=== PATIENT | female | born 1950 | race Caucasian/White ===

== ENCOUNTER 2022-09-19 04:56 | Inpatient (IN) ==
[2022-09-15 18:32] LABS: Appearance,Urine HAZY (Clear); Bilirubin,Urine Negative (Negative); Color,Urine YELLOW; Culture Indicated,Urine No; Glucose,Urine (UA) Negative (Negative); Ketones,Urine Negative (Negative); Leukocyte Esterase,Urine 25 /uL (Negative); Mucus,Urine FEW /hpf; Nitrate,Urine Negative (Negative); Protein,Urine Negative (Negative); Specific Gravity,Urine 1.021 (1.000-1.035); Urine Blood Negative (Negative); Urine RBC 1 /hpf (0-3); Urine Squamous Epithelial Cell < 1 /hpf (0-4); Urine WBC 3 /hpf (0-4); Urobilinogen,Urine Negative
[2022-09-15 18:32] LABS: Basophils # (Auto) 0.06 K/mcL (0.00-0.30); Basophils % (Auto) 0.6 % (0.0-2.0); Eosinophils # (Auto) 0.35 K/mcL (0.00-0.70); Eosinophils % (Auto) 3.4 % (0.0-7.0); Hematocrit 39.2 % (34.1-44.9); Hemoglobin 11.3 g/dL (11.2-15.7); Lymphocytes # (Auto) 2.35 K/mcL (1.50-4.80); Mean Cell Volume 82.7 fL (80.0-100.0); Mean Corpuscular HGB Conc 28.8 g/dL (31.0-36.0); Monocytes # (Auto) 0.88 K/mcL (0.10-0.90); Monocytes % (Auto) 8.6 % (1.0-12.0); Neutrophils % (Auto) 64.2 % (38.0-78.0); Platelet Count 316 K/mcL (140-440); RBC 4.74 M/mcL (3.59-5.38); Red Cell Distribution Width 14.8 % (11.5-14.5); WBC 10.2 K/mcL (4.5-11.0)
[2022-09-15 19:00] LABS: Blood Urea Nitrogen 25 mg/dL (8-23); Calcium 9.3 mg/dL (8.6-10.4); Carbon Dioxide 23 mmol/L (22-30); Chloride 102 mmol/L (96-108); Glomerular Filtration Rate 41; Glucose 67 mg/dL (70-105)
--- NOTE | 2022-09-18 09:40 | EKG ---
[facility] Test Date: 2022-09-15 Pat Name: Glenda Abdi Department: [facility] Room: Gender: Female Inspector Wire Rope: : 1950 Requested By: Bret Thomson Order Number: [id number] Reading MD: Cayden Soriano Measurements Intervals [place] Rate: 56 P: 44 IN: 158 QRS: 46 QRSD: 92 T: 41 QT: 426 QTc: 411 Interpretive Statements Sinus rhythm Electronically Signed On 09-18-2022 9:39:45 PST by Cayden Soriano /[id number]/[id number]
--- OUTSIDE RECORDS SUMMARY | 2022-09-19 04:59 | External Medical Summary | Summary of Care ---
:1950 Author Organization [facility] Address [address] [place] [address]- Care Team Providers Name Role Phone None, Assigned Primary Care Physician Unavailable Encounter FNBR [id number] Date(s): 03/13/19 - 03/13/19 [facility] [address] [place] [address]- [facility] Allergies, Adverse Reactions, Alerts No Known Medication Allergies Medications gabapentin 600 mg, PO, TID, # 90 dose(s), # Refill (s): 11 Start Date: 03/13/19 Status: Suspendedzolpidem 5 mg oral tablet 5 mg = 1 tab(s), PO, Every Bedtime, PRN: as needed for insomnia, Takes nightly Start Date: 03/13/19 Status: Suspendedzzzacetaminophen-codein 300 mg-30 mg oral tablet Start Date: 03/13/19 Status: Ordered
--- OUTSIDE RECORDS SUMMARY | 2022-09-19 04:59 | External Medical Summary ---
:1950 Author Care Team Providers Name Role Phone MIAH ZAPATA MD Primary Care Provider [phone] JUAN MAHONEY MD Pest Controller Assistant [phone] Allergies Code Code System Name Reaction Severity Status Onset NKDA Medications Name Status Start Date Stop Date acetaminophen 300 mg-codeine 30 mg tablet Active Not available Take 2 tablets as needed by oral route for 28 days. gabapentin 300 mg capsule Active Not av ailable Take 2 capsules 3 times a day by oral route for 30 days. hydrochlorothiazide 12.5 mg tablet Completed 03/28/2019 hydrocodone 7.5 mg-acetaminophen 325 mg tablet Active Not available Take 1 tablet as needed by oral route for 11 days. levofloxacin 750 mg tablet Completed 03/28 metronidazole 500 mg tablet Completed 03/03 Probiotic 10 billion cell capsule Active Not available Take 1 capsule every day by oral route in the morning. sulfamethoxazole 800 mg-trimethoprim 160 mg tablet Completed 03/28/2019 zolpidem 5 mg tablet Completed 03/28/2019 Problems None recorded. Procedures Date Name Performed by 09/03/2003 Complete Repair of Rotator Cuff Informat ion not available Notes: RIGHT Stent Placement Information not avai lable Notes: COMMON BILE DUCT Endoscopic Retrograde Information not av ailable Cholangiopancreatography Parathyroidectomy Information not avai lable Total Shoulder Replacement Information n ot available Notes: RIGHT Tonsillectomy Information not avai lable Tubal Ligation Information not avai lable Notes: IN HER 20'S Biopsy of Breast Information not avai lable Notes: FIBROCYSTIC 03/28/2019 CT, Abdomen + Pelvis, W/wo Contrast rm c Radiology [address] [place] [id number] (Work Place) Results Lab Results None recorded. Past Encounters None recorded. Social History Tobacco Smoking Status Former Smoker (2 packs per day) Note s: QUIT SMOKING 2001 Vaccine List Vaccine Type influenza, injectable, quadrivalent 07/02/2018 pneumococcal conjugate PCV 13 07/02/2018 Plan of Care Reminders Provider Appointments None recorded. Lab None recorded. Referral None recorded. Procedures None recorded. Surgeries None recorded. Imaging None recorded. Vitals 03/28/2019 09:00AM New Patient 30 Height Weight BMI Blood Pressure 5 ft 6 in 207 lbs 33.4 kg/m2 (1) 155/85 mm[H g] (2) 215/110 mm[H g] 03/19/2019 Height Weight BMI Blood Pressure 5 ft 6 in 251 lbs 40.5 kg/m2 109/56 mm[Hg]
--- OUTSIDE RECORDS SUMMARY | 2022-09-19 04:59 | External Medical Summary | Summary of Care ---
:1950 Author Organization [facility] Address [address] [place] [address]- Care Team Providers Name Role Phone None, Assigned Primary Care Physician Unavailable Encounter FNBR [id number] Date(s): 03/13/19 - 03/15/19 [facility] [address] [place] [address]- [facility] Discharge Diagnosis: Acute cholecystitis due to biliary calculus Discharge Diagnosis: UTI (urinary tract infection) Discharge Diagnosis: E coli bacteremia Discharge Disposition: *Home () Attending Physician: Alma Vigil MD Admitting Physician: Phan Chapman MD Vital Signs Most recent to oldest [Reference Range]: 1 Height (in) 66.93 inch(es) (03/13/19 10:02 PM) Body Mass Index 32.68 kg/m2 (03/13/19 10:02 PM) Blood Pressure [90-138/60-88 mmHg] 204/93 mmHg *>HHI* (03/15/19 11:16 AM) Peripheral Pulse Rate [50-110 bpm] 62 bpm (03/15/19 11:16 AM) Problem List Condition Effective Dates Status Health Status Informant Cholecystitis, acute(Confirmed) 03/14/19 Active E coli bacteremia(Confirmed) 03/15/19 Active Choledocholithiasis with acute 03/15/19 Active cholecystitis with obstruction(Confirmed) Chronic kidney disease (CKD), stage 03/15/19 Active III (moderate)(Confirmed) Allergies, Adverse Reactions, Alerts Substance Reaction Severity Status Ambien1 delirium Severe Active 1presented to ER with altered mental status and acute cholecystitis. She was asymptomatic of gallbaldder disease Medications acetaminophen-codeine 300 mg-30 mg oral tablet 1 tab(s), PO, Q6 Hours, # 30 tab(s), Continue to take pain medications as directed by your prescribing doctor Start Date: 03/15/19 Status: Orderedgabapentin 600 mg, PO, TID, # 90 dose(s), # Refill (s): 11 Start Date: 03/13/19 Status: OrderedlevoFLOXacin 750 mg oral tablet 750 mg = 1 tab(s), PO, Q24 Hours, # 12 tab(s), x 12 day(s) 03/27/19 Start Date: 03/15/19 Stop Date: 03/27/19 Status: OrderedmetroNIDAZOLE 500 mg oral tablet 500 mg = 1 tab(s), PO, Q8 Hours, # 12 tab(s), x 4 day(s) 03/19/19 Start Date: 03/15/19 Stop Date: 03/19/19 Status: Ordered Results General Lab Most recent to oldest [Reference Range]: 1 White Blood Cell Count [3.5-11.0 x10(9)/L] 15.1 x10(9) /L *HI* (03/15/19 7:36 AM) Red Blood Cell Count [3.80-5.10 x10(12)/L] 4.31 x10(12 )/L (03/15/19 7:36 AM) Hemoglobin [11.4-15.2 g/dL] 11.9 g/dL (03/15/19 7:36 AM) Hematocrit [33-45 %] 37 % (03/15/19 7:36 AM) Mean Corpuscular Volume [80-100 fL] 86 fL (03/15/19 7:36 AM) Mean Corpuscular HGB [28-34 pg] 28 pg (03/15/19 7:36 AM) Mean Corpuscular HGB Concentrn [33-36 g/dL] 32 g/dL *LOW* (03/15/19 7:36 AM) RBC Distribution Width [12.0-16.0 %] 14.8 % (03/15/19 7:36 AM) Platelet Count [150-400 x10(9)/L] 231 x10(9)/L (03/15/19 7:36 AM) Lymphocytes, Percent 8.5 % *NA* (03/15/19 7:36 AM) Monocytes, Percent 4.4 % *NA* (6/14/19 7:36 AM) Neutrophils, Percent 87.0 % *NA* (03/15/19 7:36 AM) Eosinophils, Percent 0.0 % *NA* (03/15/19 7:36 AM) Basophils, Percent 0.1 % *NA* (03/15/19 7:36 AM) Lymphocytes, Absolute Count [1.0-4.5 x10(9)/L] 1.3 x10 (9)/L (03/15/19 7:36 AM) Monocytes, Absolute Count [0.1-0.9 x10(9)/L] 0.7 x10(9 )/L (03/15/19 7:36 AM) Neutrophils, Absolute Count [2.0-8.5 x10(9)/L] 13.2 x1 0(9)/L *HI* (03/15/19 7:36 AM) Eosinophils, Absolute Count [0.0-0.5 x10(9)/L] 0.0 x10 (9)/L (03/15/19 7:36 AM) Basophils, Absolute Count [0.0-0.1 x10(9)/L] 0.0 x10(9 )/L (03/15/19 7:36 AM) Lymphocytes Percent 9 % *NA* (03/13/19 10:20 PM) Monocytes Percent 3 % *NA* (03/13/19 10:20 PM) Segmented Neutrophils Percent 82 % *NA* (03/13/19 10:20 PM) Bands Percent [0-10 %] 6 % (03/13/19 10:20 PM) Eosinophils Percent 0 % *NA* (03/13/19 10:20 PM) Basophils Percent 0 % *NA* (03/13/19 10:20 PM) Lymphocytes Absolute Count [1.00-4.50 x10(9)/L] 2.00 x 10(9)/L (03/13/19 10:20 PM) Monocytes Absolute Count [0.10-0.90 x10(9)/L] 0.67 x10 (9)/L (03/13/19 10:20 PM) Neutrophils Absolute Count [2.00-8.50 x10(9)/L] 19.54 x10(9)/L *HI* (03/13/19 10:20 PM) Eosinophils Absolute Count [0.00-0.50 x10(9)/L] 0.00 x 10(9)/L (03/13/19 10:20 PM) Basophils Absolute Count [0.00-0.20 x10(9)/L] 0.00 x10 (9)/L (03/13/19 10:20 PM) Morphology normal (03/13/19 10:20 PM) Prothrombin Time [11.8-14.3 sec] 14.4 sec *HI* (03/13/19 10:20 PM) INR [0.9-1.1] 1.1 (03/13/19 10:20 PM) Sodium Level [136-146 mmol/L] 141 mmol/L (03/15/19 7:36 AM) Potassium Level [3.5-5.3 mmol/L] 3.9 mmol/L (03/15/19 7:36 AM) Chloride Level [100-112 mmol/L] 108 mmol/L (03/15/19 7:36 AM) Carbon Dioxide Content (CO2) [22-31 mmol/L] 24 mmol/L (03/15/19 7:36 AM) Anion Gap, Blood [6-14 mmol/L] 9 mmol/L (03/15/19 7:36 AM) Creatinine, Serum [0.57-1.11 mg/dL] 1.03 mg/dL (03/15/19 7:36 AM) eGFR (NonAfrican-Brazilian) [60-300 mL/min/1.73m] 56 mL/min/1.73m *LOW* (03/15/19 7:36 AM) eGFR (-Brazilian) [60-300 mL/min/1.73m] >60 mL /min/1.73m (03/15/19 7:36 AM) Urea Nitrogen [9-25 mg/dL] 15 mg/dL (03/15/19 7:36 AM) Total Protein Plasma [6.1-8.0 g/dL] 5.9 g/dL *LOW* (03/15/19 7:36 AM) Albumin Level [3.4-4.8 g/dL] 3.1 g/dL *LOW* (03/15/19 7:36 AM) Calcium Level [8.7-10.4 mg/dL] 9.4 mg/dL (03/15/19 7:36 AM) Magnesium Level [1.8-2.8 mg/dL] 1.8 mg/dL (03/15/19 7:36 AM) Alkaline Phosphatase [40-150 U/L] 429 U/L *HI* (03/15/19 7:36 AM) ALT (SGPT) [<=55 U/L] 251 U/L *HI* (03/15/19 7:36 AM) AST (SGOT) [10-40 U/L] 133 U/L *HI* (03/15/19 7:36 AM) Bilirubin Total Level [0.2-1.2 mg/dL] 1.2 mg/dL (03/15/19 7:36 AM) Glucose Random [75-139 mg/dL] 103 mg/dL (03/15/19 7:36 AM) Lactic Acid, Whole Blood [<=1.6 mmol/L] 0.8 mmol/L (03/13/19 10:20 PM) pH, Urine [5.0-8.0] 6.0 *NA* (03/14/19 6:05 AM) Specific [place], Urine [1.005-1.030] 1.028 (03/14/19 6:05 AM) Protein, Urine [negative] negative *NA* (03/14/19 6:05 AM) Glucose, Qualitative Urine [negative] negative *NA* (03/14/19 6:05 AM) Ketones, Urine [negative] negative *NA* (03/14/19 6:05 AM) Blood, Urine [negative] TRACE *ABN* (03/14/19 6:05 AM) Urine Leukocyte Esterase [negative] 3+ *ABN* (03/14/19 6:05 AM) Urine Nitrite [negative] negative *NA* (03/14/19 6:05 AM) U Sediment ABNORMAL AUTO *ABN* (03/14/19 6:05 AM) Urine C/S If Indicated Sent *ABN* (03/14/19 6:05 AM) UA RBC Auto 2+ *ABN* (03/14/19 6:05 AM) UA WBC Auto 2+ *ABN* (03/14/19 6:05 AM) Epithelial Cells 1+ (03/14/19 6:05 AM) C-Reactive Protein [<=7.9 mg/L] 136.0 mg/L *HI* (03/13/19 10:20 PM) Microbiology Reports TEST:Urine Culture/Sensitivity STATUS:Auth (Verified) BODY SITE: SOURCE:Urine (Clean Void) COLLECTED DATE/TIME:03/14/19 6:05 AMFINAL REPORTNo growth of >=1,000 cfu/ml at 1 day.TEST:Blood Culture (Bacteria & Yeast) STATUS:In Progress BODY SITE:Hand Right SOURCE:Blood COLLECTED DATE/TIME:03/13/19 10:21 PMPRELIMINARY REPORTNo growth to date TEST:Blood Culture (Bacteria & Yeast) STATUS:In Progress BODY SITE:Hand Left SOURCE:Blood COLLECTED DATE/TIME:03/13/19 10:20 PMPRELIMINARY REPORTNo growth to date Radiology Reports Exam Date Time Procedure Performing Provider Status 03/14/19 3:15 PM ERCP Short Auth (Verified) Notes:(ERCP Short) Result Comment: History: ERCPTechnical fluoroscopic assistance was provided to the gastroenterology physician. This is a technical charge only. Please see complete notes from gastroenterology.
[2022-09-19] MEDS ORDERED: IPRATROPIUM/ALBUTEROL 3 ML AMPUL.NEB NEB PRN ×2 (05:00→08:12)
[2022-09-19] MEDS ORDERED: SCOPOLAMINE 1 PATCH PATCH TOPICAL PRN (05:00)
[2022-09-19] MEDS ORDERED: GABAPENTIN 300 MG CAPSULE PO SCH ×3 (06:00→21:00)
[2022-09-19] MEDS ORDERED: ceFAZolin 2 GM in DEXTROSE 5% IN WATER 50 ML IV SCH (06:00)
[2022-09-19] MEDS ORDERED: CELECOXIB 200 MG CAPSULE PO SCH (06:00)
[2022-09-19] MEDS ORDERED: ACETAMINOPHEN 500 MG TABLET PO SCH (06:00)
[2022-09-19] MEDS ORDERED: 0.9 % SODIUM CHLORIDE 9 ML, KETOROLAC 30 MG, ROPIVACAINE HCL/PF 49.5 ML, EPINEPHrine 0.... IJ SCH (06:00)
[2022-09-19] MEDS ORDERED: oxyCODONE 10 MG TAB.ER.12H PO SCH (06:00)
[2022-09-19] MEDS ORDERED: PROPOFOL 200 MG/20 ML VIAL IV ONE (07:30)
[2022-09-19] MEDS ORDERED: LIDOCAINE HCL/PF 100 MG/5 ML SYRINGE IV ONE (07:30)
[2022-09-19] MEDS ORDERED: ROPIVACAINE HCL/PF 20 ML VIAL IJ ONE (07:30)
[2022-09-19] MEDS ORDERED: DEXAMETHASONE 10 MG/ML VIAL ONE (07:30)
[2022-09-19] MEDS ORDERED: fentaNYL 100 MCG/2 ML VIAL IV ONE (07:30)
[2022-09-19] MEDS ORDERED: KETAMINE 50 MG/ML Syringe (ANEST) IV ONE (07:30)
[2022-09-19] MEDS ORDERED: MAGNESIUM SULFATE 2 GM/50 ML BAG IV ONE (07:30)
[2022-09-19] MEDS ORDERED: ONDANSETRON 4 MG/2 ML VIAL ONE (07:30)
[2022-09-19] MEDS ORDERED: diphenhydrAMINE 50 MG/ML VIAL IV PRN (08:12)
[2022-09-19] MEDS ORDERED: LACTATED RINGERS 250 ML IV PRN (08:12)
[2022-09-19] MEDS ORDERED: fentaNYL 100 MCG/2 ML VIAL IV PRN (08:12)
[2022-09-19] MEDS ORDERED: NALOXONE HCL 0.4 MG/ML VIAL IV PRN (08:12)
[2022-09-19] MEDS ORDERED: PROMETHAZINE 25 MG/ML VIAL IV PRN (08:12)
[2022-09-19] MEDS ORDERED: ONDANSETRON 4 MG/2 ML VIAL IV PRN ×2 (08:12→08:30)
[2022-09-19] MEDS ORDERED: MEPERIDINE 25 MG/ML VIAL IV PRN (08:12)
[2022-09-19] MEDS ORDERED: LACTATED RINGERS 1,000 ML IV SCH (08:15)
[2022-09-19] MEDS ORDERED: TRANEXAMIC ACID 1,000 MG/10 ML VIAL IV ONE ×2 (08:16→08:30)
[2022-09-19] MEDS ORDERED: FLEETS ADULT ENEMA PR PRN (08:30)
[2022-09-19] MEDS ORDERED: POLYETHYLENE GLYCOL 3350 17 GM PACKET PO PRN (08:30)
[2022-09-19] MEDS ORDERED: HYDROcodone/APAP 10/325MG TABLET PO PRN (08:30)
[2022-09-19] MEDS ORDERED: BISACODYL 10 MG SUPP.RECT PR PRN (08:30)
[2022-09-19] MEDS ORDERED: TEMAZEPAM 15 MG CAPSULE PO PRN (08:30)
[2022-09-19] MEDS ORDERED: MAGNESIUM HYDROXIDE 30 ML ORAL.SUSP PO PRN (08:30)
[2022-09-19] MEDS ORDERED: ACETAMINOPHEN 325 MG TABLET PO PRN (08:30)
[2022-09-19] MEDS ORDERED: 0.45 % SODIUM CHLORIDE 1,000 ML IV SCH (08:30)
--- NOTE | 2022-09-19 08:30 | Brief Operative Note ---
Brief Operative Note Date of procedure: 09/19/22 Pre-op diagnosis: left knee instability Post-op diagnosis: same Procedure: Left tka revision ofpoly Grafts/Implants: Yes Anesthesia: GETA Findings: severe instability Complications: none Surgeon: Jose Oneil Teacher Public Health: Mickey Ortiz Estimated blood loss (cc): 20 Tourniquet Time (Minutes): 25 Specimens Removed/Pathology: none sent Condition: stable Disposition: PACU
[2022-09-19] MEDS ORDERED: ZOLPIDEM 5 MG TABLET PO PRN (08:32)
[2022-09-19] MEDS ORDERED: DILTIAZEM 180 MG CAP.XL.24H PO SCH (09:00)
[2022-09-19] MEDS ORDERED: ASPIRIN 81 MG TAB.CHEW PO SCH (09:00)
[2022-09-19] MEDS ORDERED: CALCIUM W/VIT D3 500 MG TABLET PO SCH (09:00)
[2022-09-19] MEDS ORDERED: DOCUSATE SODIUM 100 MG CAPSULE PO SCH (09:00)
[2022-09-19] MEDS ORDERED: VITAMIN D3 25 MCG TABLET PO SCH (09:00)
--- NOTE | 2022-09-19 09:53 | XRay Report ---
CLINICAL INFORMATION: Post-Op Total Knee COMPARISON: None. FINDINGS: Total knee prostheses is anatomically aligned. No osseous abnormalities. Periarticular soft tissue swelling seen as expected. IMPRESSION: Knee prostheses in anatomic alignment Interpreted and Authenticated by: Vahid Beard 09/19/22
--- NOTE | 2022-09-19 11:02 | Operative Note ---
DATE OF OPERATION: 09/19/2022 PREOPERATIVE DIAGNOSIS: Left knee instability. POSTOPERATIVE DIAGNOSIS: Left knee instability. PROCEDURE: Left total knee revision of one component from a size 11 mm poly to a size 13 mm poly with a deep dish. SURGEON: Jose Oneil M.D. DINKEY ENGINE FIRER: Mickey Ortiz PA-C. The PA's assistance was required for the safe and efficient completion of the entire case. This provider's expertise and technical skill were required throughout the case. The PA assisted with preoperative coordination, intraoperative retraction, wound closure, dressing and splint application, as well as postoperative documentation and care coordination. ANESTHESIA: Spinal and general LMA anesthesia. GATE SERVICES SUPERVISOR: Bret Thomson CRNA. COMPLICATIONS: None. DISPOSITION: PACU. ESTIMATED BLOOD LOSS: Less than 20 mL. TOURNIQUET TIME: Approximately 25 minutes at 250 pounds of pressure. DESCRIPTION OF PROCEDURE: The patient was brought to the operating room, put to sleep with general LMA anesthesia. Once asleep, the patient had the left leg sterilely prepped and draped in the usual sterile fashion. Timeout was performed, confirming it as the operative site by initials, consent form, and x-ray. A midline incision was made with midvastus approach as well as dissecting through the fascia. We identified the joint and saw no signs of infection. We removed the poly liner, which measured 11 mm by 4 mm baseplate. There was a small posterior meniscus that was removed as well. We injected the posterior capsule with the post-injection formula. We trialed with OrthoSensor or Verasense that recorded the pressures through the arc of motion. This recorded an acceptable range with a size 13. The size 14 mm was too tight. We were exceeding the 70 mmHg pressures in both compartments. With a 13, this recorded 50 and 31, respectively. We irrigated thoroughly and then implanted the final implant. A size 13 deep dish poly was inserted into a size 4 baseplate. We then placed within the joint tranexamic acid mixed with 250 mL of normal saline. This was left in the wound. We deflated the tourniquet. We then closed the midvastus approach with #1 Stratafix x2, closed the skin with Stratafix and adhesive closure. The patient tolerated this well without complication. KENNY:guilherme Job ID: [id number] Doc ID: [id number] Jose Oneil MD
[2022-09-19] MEDS ORDERED: 0.9 % SODIUM CHLORIDE 10 ML SYRINGE IV SCH (14:00)
[2022-09-19] MEDS ORDERED: ceFAZolin 1 GM VIAL IV SCH (15:30)
[2022-09-19] MEDS ORDERED: SENNOSIDES 1 TABLET PO SCH (21:00)
[2022-09-19] MEDS ORDERED: ATORVASTATIN 40 MG TABLET PO SCH (21:00)
== END 2022-09-19 14:24 | disposition home or self-care (01) | DRG 489 ==
LOC: MEDSUR 04:56
PROVIDERS: ADMIT Orthopaedic Surgery; ATTEND Orthopaedic Surgery